=== PATIENT | male | born 1970 | race Caucasian/White ===

== ENCOUNTER → 2017-06-05 | Outpatient (CLI) | payer BC | LOC: M WUC 13:33 | DX: S22.32XA Fracture of one rib, left side, initial encounter for closed fracture (principal); R06.02 Shortness of breath; X58.XXXA Exposure to other specified factors, initial encounter; Y92.89 Other specified places as the place of occurrence of the external cause | CPT/HCPCS: 71101 ==

== ENCOUNTER → 2017-07-03 | Outpatient (CLI) | payer BC ==
[2017-07-03 17:51] LABS: BASO # 0.1 10^3/uL (0.0-0.2); BASO % 2.1 % (0.0-1.0); EOS # 0.3 10^3/uL (0.0-0.50); EOS % 5.4 % (0.0-3.0); HEMATOCRIT 44.9 % (42.0-52.0); HEMOGLOBIN 15.5 g/dl (13.5-17.5); IMMATURE GRANULOCYTE % 0.4 % (0-3.0); LYMPH # 1.8 10^3/uL (1.5-4.5); LYMPH % 31.2 % (24.0-44.0); MEAN CORPUSCULAR HEMOGLOBIN 32.7 pg (27.0-33.0); MEAN CORPUSCULAR HGB CONC 34.5 g/dl (32.0-36.5); MEAN CORPUSCULAR VOLUME 94.7 fl (80.0-96.0); MONO # 0.4 10^3/uL (0.0-0.8); MONO % 7.7 % (0.0-5.0); NEUTROPHILS % 53.2 % (36.0-66.0); PLATELET COUNT, AUTOMATED 150 10^3/uL (150-450); RED BLOOD COUNT 4.74 10^6/uL (4.30-6.10); RED CELL DISTRIBUTION WIDTH 12.2 % (11.5-14.5); WHITE BLOOD COUNT 5.7 10^3/uL (4.0-10.0)
[2017-07-03 18:04] LABS: ALBUMIN 3.9 GM/DL (3.2-5.2); ALBUMIN/GLOBULIN RATIO 1.22 (1.00-1.93); ALKALINE PHOSPHATASE 103 U/L (45-117); ALT/SGPT 65 U/L (12-78); ANION GAP 7 MEQ/L (8-16); AST/SGOT 36 U/L (7-37); BILIRUBIN,TOTAL 0.7 MG/DL (0.2-1.0); BLOOD UREA NITROGEN 14 MG/DL (7-18); CALCIUM LEVEL 8.9 MG/DL (8.5-10.1); CARBON DIOXIDE LEVEL 26 MEQ/L (21-32); CHLORIDE LEVEL 107 MEQ/L (98-107); CHOLESTEROL LEVEL 218 MG/DL (<200); CHOLESTEROL RISK RATIO 5.891 (<5); CREATININE FOR GFR 1.06 MG/DL (0.70-1.30); ESTIMATED AVERAGE GLUCOSE 174 MG/DL (60-110); GLOMERULAR FILTRATION RATE > 60.0 (>60); GLUCOSE, FASTING 151 MG/DL (70-100); HDL CHOLESTEROL 37 MG/DL (>40); HEMOGLOBIN A1c 7.7 %; NON-HDL-C 181 MG/DL; POTASSIUM SERUM 4.6 MEQ/L (3.5-5.1); SODIUM LEVEL 140 MEQ/L (136-145); TOTAL PROTEIN 7.1 GM/DL (6.4-8.2); TRIGLYCERIDES LEVEL 417 MG/DL (<150)
== END ==
LOC: M WUC 14:25
DX: E11.65 Type 2 diabetes mellitus with hyperglycemia (principal); J18.9 Pneumonia, unspecified organism
CPT/HCPCS: 80053

== ENCOUNTER → 2017-07-03 | Outpatient (CLI) | payer BC | LOC: M WUC 14:22 | DX: R05 Cough (principal) | CPT/HCPCS: 71046 ==

== ENCOUNTER → 2018-12-21 | Outpatient (REF) | payer SELFPAY ==
[2018-12-21 14:06] LABS: BASO # 0.1 10^3/uL (0.0-0.2); EOS # 0.2 10^3/uL (0.0-0.5); EOS % 4.4 % (0.0-3.0); HEMATOCRIT 45.5 % (42.0-52.0); HEMOGLOBIN 15.5 g/dl (13.5-17.5); LYMPH # 1.9 10^3/uL (1.5-5.0); LYMPH % 38.9 % (24.0-44.0); MEAN CORPUSCULAR HEMOGLOBIN 33.5 pg (27.0-33.0); MEAN CORPUSCULAR HGB CONC 34.1 g/dl (32.0-36.5); MEAN CORPUSCULAR VOLUME 98.3 fl (80.0-96.0); MONO # 0.4 10^3/uL (0.0-0.8); MONO % 7.9 % (0.0-5.0); NEUTROPHILS # 2.3 10^3/uL (1.5-8.5); NEUTROPHILS % 46.6 % (36.0-66.0); PLATELET COUNT, AUTOMATED 166 10^3/uL (150-450); RED BLOOD COUNT 4.63 10^6/uL (4.30-6.10)
[2018-12-21 14:12] LABS: ALT/SGPT 75 U/L (12-78); BILIRUBIN,TOTAL 0.7 MG/DL (0.2-1.0); BLOOD UREA NITROGEN 9 MG/DL (7-18); CALCIUM LEVEL 9.5 MG/DL (8.5-10.1); CARBON DIOXIDE LEVEL 27 MEQ/L (21-32); CHLORIDE LEVEL 99 MEQ/L (98-107); CHOLESTEROL LEVEL 221 MG/DL (<200); CHOLESTEROL RISK RATIO 3.622 (<5); CREATININE FOR GFR 1.08 MG/DL (0.70-1.30); GLOMERULAR FILTRATION RATE > 60.0 (>60); GLUCOSE, FASTING 155 MG/DL (70-100); HDL CHOLESTEROL 61 MG/DL (>40); LDL CHOLESTEROL 121 MG/DL (<100); NON-HDL-C 160 MG/DL; SODIUM LEVEL 134 MEQ/L (136-145); TRIGLYCERIDES LEVEL 196 MG/DL (<150)
[2018-12-21 14:24] LABS: HEMOGLOBIN A1c 8.3 %
== END ==
LOC: M LABDRAW1 12:55
PROVIDERS: ATTEND Family Medicine
DX: E11.65 Type 2 diabetes mellitus with hyperglycemia (principal); I10 Essential (primary) hypertension; E78.2 Mixed hyperlipidemia

== ENCOUNTER → 2020-03-01 | Outpatient (CLI) | payer BC ==
[2020-03-01 10:45] LABS: HEMOGLOBIN A1c 6.6 %
[2020-03-01 10:52] LABS: ALBUMIN 3.9 GM/DL (3.2-5.2); ALT/SGPT 44 U/L (12-78); BILIRUBIN,TOTAL 0.4 MG/DL (0.2-1.0); BLOOD UREA NITROGEN 13 MG/DL (7-18); CALCIUM LEVEL 9.1 MG/DL (8.5-10.1); CARBON DIOXIDE LEVEL 27 MEQ/L (21-32); CHLORIDE LEVEL 108 MEQ/L (98-107); CHOLESTEROL LEVEL 144 MG/DL (<200); CHOLESTEROL RISK RATIO 3.789 (<5); CREATININE FOR GFR 0.98 MG/DL (0.70-1.30); GLOMERULAR FILTRATION RATE > 60.0 (>56); GLUCOSE, FASTING 159 MG/DL (70-100); HDL CHOLESTEROL 38 MG/DL (>40); LDL CHOLESTEROL 62 MG/DL (<100); NON-HDL-C 106 MG/DL; POTASSIUM SERUM 4.6 MEQ/L (3.5-5.1); SODIUM LEVEL 139 MEQ/L (136-145); TRIGLYCERIDES LEVEL 218 MG/DL (<150)
[2020-03-01 10:59] LABS: CREATININE, URINE 97.9 MG/DL; MALB URINE SIEMENS 8.7 MG/L; MAU/CREAT RATIO 8.8 MCG/MG (0.0-30.0)
== END ==
LOC: M LAB 09:04
PROVIDERS: ATTEND Nurse Practitioner Family
DX: E11.65 Type 2 diabetes mellitus with hyperglycemia (principal); I10 Essential (primary) hypertension; E78.2 Mixed hyperlipidemia

== ENCOUNTER → 2022-06-30 | Outpatient (CLI) | payer OTHER ==
[2022-06-30 11:24] LABS: HEMOGLOBIN A1c 7.4 % (4.0-6.0)
[2022-06-30 11:38] LABS: ALBUMIN 4.2 G/DL (3.2-5.2); ALKALINE PHOSPHATASE 66 U/L (46-116); ALT/SGPT 51 U/L (7.0-40); AST/SGOT 32 U/L (<34); BILIRUBIN,TOTAL 0.3 MG/DL (0.3-1.2); BLOOD UREA NITROGEN 9 MG/DL (9-23); CARBON DIOXIDE LEVEL 29 MMOL/L (20-31); CHLORIDE LEVEL 103 MMOL/L (98-107); CHOLESTEROL LEVEL 144 MG/DL (<200); CHOLESTEROL RISK RATIO 3.76 (<5); CREATININE FOR GFR 0.85 MG/DL (0.70-1.30); GLOMERULAR FILTRATION RATE > 60.0 (>56); GLUCOSE, FASTING 152 MG/DL (60-100); HDL CHOLESTEROL 38.2 MG/DL (>40); NON-HDL-C 105.8 MG/DL; POTASSIUM SERUM 4.3 MMOL/L (3.5-5.1); SODIUM LEVEL 138 MMOL/L (136-145); TOTAL PROTEIN 6.8 G/DL (5.7-8.2); TRIGLYCERIDES LEVEL 384 MG/DL (<150)
== END ==
LOC: M WUC 08:21
PROVIDERS: ATTEND Nurse Practitioner Family
DX: I10 Essential (primary) hypertension (principal); E11.65 Type 2 diabetes mellitus with hyperglycemia; E78.2 Mixed hyperlipidemia

== ENCOUNTER 2023-06-02 07:38 | Emergency (ER) | payer OTHER ==
[~2023-06-02] VITALS: Ht 182.9 cm; Wt 96.6 kg
[2023-06-02] MEDS ORDERED: OMEP40CA5 (07:55)
[2023-06-02] MEDS ORDERED: METO200T15 (07:55)
[2023-06-02] MEDS ORDERED: LOSA100T5 (07:55)
[2023-06-02] MEDS ORDERED: METH-1165 (07:55)
[2023-06-02] MEDS ORDERED: MEDR4PAK PO (10:57)
[2023-06-02] MEDS ORDERED: HYDR-3713 PO (10:57)
[2023-06-02 11:30] VITALS: BP 157/89; TEMP 97.5; O2SAT 98
== END 2023-06-02 11:48 | disposition home or self-care (01) ==
LOC: EDBD 07:38 → M ED 07:38
DX: S79.921A Unspecified injury of right thigh, initial encounter (principal); W22.8XXA Striking against or struck by other objects, initial encounter; I10 Essential (primary) hypertension; K21.9 Gastro-esophageal reflux disease without esophagitis; F17.200 Nicotine dependence, unspecified, uncomplicated; F10.10 Alcohol abuse, uncomplicated; Z91.048 Other nonmedicinal substance allergy status; Y92.9 Unspecified place or not applicable; Y93.89 Activity, other specified; Y99.0 Civilian activity done for income or pay; Z79.83 Long term (current) use of bisphosphonates; Z79.899 Other long term (current) drug therapy

== ENCOUNTER → 2023-06-22 | Outpatient (CLI) | payer OTHER ==
[~2023-06-22] MED LIST: HYDR-3713 PO; LOSA100T5; MEDR4PAK PO; METH-1165; METO200T15; OMEP40CA5
[2023-06-22 11:20] LABS: ALBUMIN 3.5 G/DL (3.2-5.2); ALKALINE PHOSPHATASE 52 U/L (46-116); ALT/SGPT 41 U/L (7.0-40); AST/SGOT 25 U/L (<34); BILIRUBIN,TOTAL 0.3 MG/DL (0.3-1.2); BLOOD UREA NITROGEN 15 MG/DL (9-23); CALCIUM LEVEL 8.9 MG/DL (8.5-10.1); CARBON DIOXIDE LEVEL 27 MMOL/L (20-31); CHLORIDE LEVEL 108 MMOL/L (98-107); CHOLESTEROL LEVEL 188 MG/DL (<200); CHOLESTEROL RISK RATIO 3.72 (<5); CREATININE FOR GFR 0.97 MG/DL (0.70-1.30); GLOMERULAR FILTRATION RATE > 60.0 (>56); GLUCOSE, FASTING 141 MG/DL (60-100); HDL CHOLESTEROL 50.5 MG/DL (>40); LDL CHOLESTEROL 114.7 MG/DL (<100); NON-HDL-C 137.5 MG/DL; POTASSIUM SERUM 4.9 MMOL/L (3.5-5.1); SODIUM LEVEL 140 MMOL/L (136-145); TOTAL PROTEIN 6.1 G/DL (5.7-8.2); TRIGLYCERIDES LEVEL 114 MG/DL (<150)
[2023-06-22 11:46] LABS: CREATININE, URINE 38.9 MG/DL; MALB URINE SIEMENS < 3.0 MG/L; MAU/CREAT RATIO 7.7 MCG/MG (0.0-30.0)
[2023-06-22 12:13] LABS: HEMOGLOBIN A1c 6.5 % (4.0-6.0)
== END ==
LOC: M PLALAB 08:36
PROVIDERS: ATTEND Nurse Practitioner Family
DX: I10 Essential (primary) hypertension (principal); E11.65 Type 2 diabetes mellitus with hyperglycemia; E78.2 Mixed hyperlipidemia

== ENCOUNTER → 2024-07-04 | Outpatient (REF) | payer OTHER ==
[2024-07-04 18:32] LABS: HEMOGLOBIN A1c 7.6 % (4.0-6.0)
[2024-07-04 18:44] LABS: ALBUMIN 4.3 G/DL (3.2-5.2); ALKALINE PHOSPHATASE 62 U/L (40-129); ALT/SGPT 46 U/L (7.0-40); AST/SGOT 30 U/L (<34); BILIRUBIN,TOTAL 0.8 MG/DL (0.3-1.2); BLOOD UREA NITROGEN 13 MG/DL (9-23); CALCIUM LEVEL 9.5 MG/DL (8.5-10.1); CARBON DIOXIDE LEVEL 30 MMOL/L (20-31); CHLORIDE LEVEL 102 MMOL/L (98-107); CHOLESTEROL LEVEL 235 MG/DL (<200); CHOLESTEROL RISK RATIO 4.34 (<5); CREATININE FOR GFR 0.96 MG/DL (0.70-1.30); GLOMERULAR FILTRATION RATE > 90.0 (>56); GLUCOSE, FASTING 136 MG/DL (60-100); HDL CHOLESTEROL 54.1 MG/DL (>40); LDL CHOLESTEROL 142.7 MG/DL (<100); NON-HDL-C 180.9 MG/DL; SODIUM LEVEL 137 MMOL/L (136-145); TRIGLYCERIDES LEVEL 191 MG/DL (<150)
[2024-07-04 18:46] LABS: CREATININE, URINE 138.4 MG/DL; MAU/CREAT RATIO 7.2 MCG/MG (0.0-30.0)
== END ==
LOC: M LABWUC 17:11
PROVIDERS: ATTEND Nurse Practitioner Family
DX: I10 Essential (primary) hypertension (principal); E11.65 Type 2 diabetes mellitus with hyperglycemia; E78.2 Mixed hyperlipidemia